=== PATIENT | male | born 1935 | race Caucasian/White ===

== ENCOUNTER 2018-09-18 17:04 | Emergency (ER) | payer MEDICARE, OTHER ==
[2018-09-18 17:27] LABS: #Eosinphils 0.1 thou/uL (0.0-0.7); #Lymphocytes 0.9 thou/uL (1.20-3.40); #Monocytes 0.4 thou/uL (0.11-0.59); #Neutrophils 4.5 thou/uL (1.40-6.50); %Basophils 0.7 % (0.0-1.0); %Eosinophils 2.4 % (0.0-10.0); %Monocytes 6.7 % (0.0-10.0); %Neutrophils 75.2 % (42.0-75.0); Hemoglobin 14.5 g/dL (14.0-18.0); Mean Corpuscular Hemoglobin 29.4 pg (27.0-31.0); Mean Platelet Volume 6.5 fL (7.4-10.4); Platelet Count 249 thou/uL (130-400); Red Blood Cell (RBC) Count 4.94 mill/uL (4.70-6.10); White Blood Cell (WBC) Count 5.9 thou/uL (4.8-10.8)
[2018-09-18 17:39] LABS: Base Excess-Venous 6.1 mmol/L (0 (+/- 2.5)); Bicarbonate (HCO3v) 32.1 mmol/L (22.0-29.0); CO2 Tension (PvCO2) 50.3 mmHg (41.0-51.0); Calcium, Ionized 1.24 mmol/L (1.12-1.32); Hemoglobin - Calc 15.2 g/dL (12.0-18.0); O2 Tension (PvO2) 23.3 mmHg (35.0-45.0); Potassium 4.3 mmol/L (3.4-4.7); T. Carbon Dioxide 33.7 mmol/L (1.0-85.0); pH (Venous) 7.413 (7.35-7.45); vO2 Saturation-calc 40.3 % (94-98)
[2018-09-18 17:43] LABS: ALT (SGPT) 16 U/L (8-55); AST (SGOT) 17 U/L (5-34); Albumin 4.2 g/dL (3.4-4.8); Alkaline Phosphatase 104 U/L (40-150); Anion Gap 15 mmol/L (10-20); BUN (Urea Nitrogen) 16 mg/dL (8.4-25.7); Bilirubin, Total 0.5 mg/dL (0.2-1.2); Calc. Creatinine Clearance 0 mL/min (70-130); Calcium 10.5 mg/dL (7.8-10.44); Carbon Dioxide 30 mmol/L (23-31); Chloride 98 mmol/L (98-107); Estimated GFR-MDRD 77; Globulin 3.5 g/dL (2.4-3.5); Glucose 216 mg/dL (83-110); Potassium 4.6 mmol/L (3.5-5.1); Protein, Total 7.7 g/dL (5.8-8.1); Sodium 138 mmol/L (136-145)
[2018-09-18 18:06] LABS: Bilirubin Negative (Negative); Blood, Urine Trace (Negative); Clarity Cloudy (Clear); Glucose, Urine (Dipstick) >=1000 mg/dL (Negative); Leukocyte Moderate (Negative); Nitrite Negative (Negative); Protein, Urine (Dipstick) Trace mg/dL (Neg-Trace); Specific Gravity, Urine 1.015 (1.005-1.030); pH, Urine 7.5 (5.0-9.0)
[2018-09-18 18:11] LABS: Bacteria/HPF 3+ HPF (None Seen); RBC/HPF 0-3 HPF (0-3); Squamous Epithelial 0-3 HPF (0-3)
[2018-09-18] MEDS ORDERED: Cephalexin 500 MG CAP ONE ×2 (18:29→18:30)
== END 2018-09-18 18:38 | disposition home or self-care (01) ==
LOC: BURERS 17:04
DX: E11.65 Type 2 diabetes mellitus with hyperglycemia (principal); I10 Essential (primary) hypertension
CPT/HCPCS: 36416; 80053; 81003; 81015; 82330; 82803; 85025; 99285